=== PATIENT | male | born 1975 | race Caucasian/White ===

== ENCOUNTER 2016-08-18 22:25 | Emergency (ER) | payer SELFPAY ==
[~2016-08-18] VITALS: Ht 157.5 cm; Wt 46.7 kg
[2016-08-18 23:52] LABS: BASOPHIL COUNT 0.1 K/uL (0-0.1); EOSINOPHIL (%) 0.4 % (0-5); EOSINOPHIL COUNT 0.1 K/uL (0-0.3); HEMATOCRIT 37.9 % (38.0-50.0); IMMATURE GRANULOCYTE (%) 0.5 % (0.0-0.7); IMMATURE GRANULOCYTE COUNT 0.1 K/uL; INSTRUMENT ABS NEUTROPHIL CT 13.7 K/uL; LYMPHOCYTE COUNT 2.2 K/uL (1.0-2.8); MCH 28.8 PG (29.0-34.0); MCV 87.3 FL (86-99); MEAN PLAT.VOLUME 8.8 uM^3 (9.0-12.4); MONOCYTE (%) 5.3 % (3-12); MONOCYTE COUNT 0.9 K/uL (0-0.8); NEUTROPHIL (%) 80.6 % (45-76); NEUTROPHIL COUNT 13.7 K/uL (1.8-6.4); PLATELET COUNT 262 K/uL (156-360); RBC DIS.WIDTH-CV 13.7 % (11.8-14.6); RBC DIS.WIDTH-SD 44.5 % (39-53); RED BLOOD COUNT 4.34 M/uL (4.00-5.50)
[2016-08-19 00:07] LABS: CHLORIDE 103 mEq/L (99-109); POTASSIUM 3.1 mEq/L (3.7-5.4); SODIUM 136 mEq/L (136-147)
[2016-08-19 00:09] LABS: GLUCOSE 100 mg/dL (70-99)
[2016-08-19 00:11] LABS: ANION GAP 12 MEQ/L (2-14); TOTAL BILIRUBIN 0.3 mg/dL (0.0-1.0)
[2016-08-19 00:13] LABS: ALKALINE PHOSPHATASE 52 IU/L (3-129); GFR ESTIMATE (CALCULATED) > 59 mL/min/
[2016-08-19 00:14] LABS: UREA NITROGEN (BUN) 5 mg/dL (9-23)
[2016-08-19 00:15] LABS: DIRECT BILIRUBIN 0.1 mg/dL (0.0-0.3)
[2016-08-19 00:17] LABS: LIPASE 672 U/L (1.0-51.0)
[2016-08-19] MEDS ORDERED: ZOFRAN4 MG PO (02:30)
[2016-08-19 02:59] VITALS: BP 105/70
== END 2016-08-19 03:00 | disposition home or self-care (01) ==
LOC: EME → EDBD 22:25 → EME 08-19 03:00
PROVIDERS: Emergency Medicine
DX: K29.20 Alcoholic gastritis without bleeding (principal); K85.90 Acute pancreatitis without necrosis or infection, unspecified; Z88.0 Allergy status to penicillin; F17.200 Nicotine dependence, unspecified, uncomplicated
CPT/HCPCS: 74177; 80048; 80076; 83690; 85025; 99281; 99284; J2405; J7030